=== PATIENT | female | born 1965 | race Caucasian/White ===

== ENCOUNTER → 2017-10-24 | Outpatient (CLI) | payer OTHER ==
[2017-10-24 16:45] VITALS: BP 108/73; PULSE 76; TEMP 97.7; BMI 40.1
--- NOTE | 2017-10-24 17:18 | P.HPOB ---
History of Present Illness H&P Date: 10/24/17 Chief Complaint: The patient is here for her routine gynecologic exam and mammogram. This is a 51-year-old G0 with an LMP of 2011. The patient has had some breast tenderness greater on the right side. Soreness is near the axilla. This started earlier in the month and is slightly tender when she pushes on this area. She denies feeling any breast masses. She also denies any nipple discharge. She is otherwise without complaints. She denies any postmenopausal bleeding. Review of Systems She has gained about 10 pounds over the last year. She denies cardiac or G.I. problems. Respiratory: she has noticed some respiratory congestion in the morning which improves with time or with a cough drop. Past Medical History Additional Past Medical History / Comment(s): MIGRAINE HEADACHE, irritable bowel syndrome. 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 History of Any Multi-Drug Resistant Organisms: None Reported Past Surgical History: Cholecystectomy, Orthopedic Surgery (Left knee), Tonsillectomy Additional Past Surgical History / Comment(s): ARTHROSCOPIC LEFT KNEE, colonoscopy 2001 and 2014. Past Anesthesia/Blood Transfusion Reactions: No Reported Reaction Past Psychological History: No Psychological Hx Reported Smoking Status: Never smoker Past Alcohol Use History: None Reported Past Drug Use History: None Reported Additional History: She is single and has never been sexually active. 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 - Past Family History Mother Family Medical History: CVA/TIA Sister(s) Family Medical History: Cancer (Thyroid) Additional Family Medical History / Comment(s): Sister has celiac disease Medications and Allergies Home Medications Medication Instructions Recorded Confirmed Type Amitriptyline HCl 25 mg PO HS 11/27/14 10/24/17 History Propranolol HCl 80 mg PO HS 11/27/14 10/24/17 History Allergies Allergy/AdvReac Type Severity Reaction Status Date / Time No Known Allergies Allergy Verified 10/24/17 16:42 Exam - Vital Signs Vital signs: Vital Signs Temp Pulse BP 10/24/17 16:42 97.7 F 76 108/73 Intake and Output 10/24/17 10/24/17 10/24/17 06:59 14:59 22:59 Other: Weight 102.965 kg Height 5'3", BMI 40.2. This is a well-developed well-nourished heavyset white female who is alert and oriented times 3 in no acute distress. HEENT: Within normal limits. NECK: Supple without mass or thyromegaly. CHEST AND LUNGS: Clear to auscultation. HEART: Regular rate and rhythm. BREASTS: Are without mass or discharge. The breasts are large and pendulous. There is mild right tenderness at the area of the tail of the breast as it goes into the axillary region. There are no palpable masses. There are no other areas of tenderness. AXILLARY EXAM: Negative for adenopathy. BACK: Negative for CVA tenderness. ABDOMEN: Soft, obese, nontender, without palpable masses. PELVIC EXAM: Normal external genitalia with minimal atrophy. Cervix and vagina appear normal with minimal atrophy. There is no unusual discharge. There is no evidence of prolapse. The uterus is midposition, nongravid size and nontender. There are no palpable adnexal masses or tenderness. Bimanual exam is somewhat limited secondary to her size. RECTAL EXAM: rectovaginal exam is negative for mass or tenderness and is negative for occult blood. EXTREMITIES: Nontender. IMPRESSION: 1. 51-year-old menopausal female with normal gynecologic exam. 2. Breast tenderness on the right in the area of the anterior axilla. Possible musculoskeletal strain or stretching of the breast supports secondary to large breasts. PLAN: 1. Pap smear was deferred since she had a normal one less than 2 years ago. 2. Self breast awareness was discussed. I have recommended that she limit caffeine and chocolate intake. I have also recommended that she tried to use well fitting bras with good support. 3. Screening mammogram will be done today. 4. Osteoporosis prevention was discussed. 5. She will return in one year.
--- NOTE | 2017-10-25 11:07 | MM ---
Reason for exam: screening (asymptomatic). Last mammogram was performed 1 year and 11 months ago. History: Patient is postmenopausal and is nulliparous. Took hormonal contraceptives for 9 years. Physical Findings: A clinical breast exam by your physician is recommended on an annual basis and results should be correlated with mammographic findings. MG Screening Mammo w CAD Bilateral CC and MLO view(s) were taken. Prior study comparison: November 17, 2015, bilateral MG screening mammo w CAD. May 20, 2014, bilateral MG screening mammo w CAD. There are scattered fibroglandular densities. There is no discrete abnormality. No significant changes when compared with prior studies. ASSESSMENT: Negative, BI-RAD 1 RECOMMENDATION: Routine screening mammogram of both breasts in 1 year.
== END | disposition home or self-care (01) ==
LOC: WWCWWP 15:57
PROVIDERS: ATTEND Obstetrics & Gynecology
DX: Z12.31 Encounter for screening mammogram for malignant neoplasm of breast (principal)
CPT/HCPCS: 77067

== ENCOUNTER → 2018-03-17 | Outpatient (CLI) | payer OTHER ==
[2018-03-17 10:15] LABS: HCT 44.9 % (34.0-46.0); HGB 14.9 gm/dL (11.4-16.0); MCH 30.7 pg (25.0-35.0); MCHC 33.2 g/dL (31.0-37.0); MCV 92.5 fL (80.0-100.0); Mean Platelet Volume 6.7; Platelet Count 275 k/uL (150-450); RBC 4.85 m/uL (3.80-5.40); RDW 12.5 % (11.5-15.5); WBC 6.5 k/uL (3.8-10.6)
[2018-03-17 10:44] LABS: ALT 34 U/L (9-52); AST 22 U/L (14-36); Albumin 3.9 g/dL (3.5-5.0); Alkaline Phosphatase 85 U/L (38-126); Anion Gap 6 mmol/L; Blood Urea Nitrogen 15 mg/dL (7-17); Calcium 9.4 mg/dL (8.4-10.2); Carbon Dioxide 26 mmol/L (22-30); Chloride 108 mmol/L (98-107); Cholesterol 171 mg/dL (<200); Glucose 96 mg/dL (74-99); HDL Cholesterol 43 mg/dL (40-60); LDL Cholesterol,Calculated 109 mg/dL (0-99); Potassium 4.4 mmol/L (3.5-5.1); Sodium 140 mmol/L (137-145); Total Bilirubin 0.7 mg/dL (0.2-1.3); Triglycerides 97 mg/dL (<150)
[2018-03-17 10:53] LABS: T4, Free (Free Thyroxine) 1.09 ng/dL (0.78-2.19)
== END ==
LOC: LABWHC1 09:28
PROVIDERS: ATTEND Internal Medicine
DX: Z00.00 Encounter for general adult medical examination without abnormal findings (principal); K21.0 Gastro-esophageal reflux disease with esophagitis; E66.1 Drug-induced obesity; E78.2 Mixed hyperlipidemia; M19.90 Unspecified osteoarthritis, unspecified site
CPT/HCPCS: 36415; 80053; 80061; 82272; 84439; 84443; 85027

== ENCOUNTER → 2018-06-22 | Outpatient (CLI) | payer OTHER ==
[2018-06-22 17:48] LABS: Appearance,Urine Clear (Clear); Bilirubin,Urine Negative (Negative); Blood,Urine Moderate (Negative); Color,Urine Yellow; Glucose,Urine (UA) Negative (Negative); Ketones,Urine Negative (Negative); Leukocyte Esterase,Urine Negative (Negative); Mucus,Urine Rare /hpf; Nitrite,Urine Negative (Negative); PH, Urine 5.5 (5.0-8.0); Protein,Urine Negative (Negative); RBC,Urine 10 /hpf (0-5); Specific Gravity,Urine 1.024 (1.001-1.035); Squamous Epithelial Cell,Urine <1 /hpf (0-4); Urobilinogen,Urine <2.0 mg/dL (<2.0); WBC,Urine 4 /hpf (0-5)
== END | disposition home or self-care (01) ==
LOC: LABWHC1 15:53
PROVIDERS: ATTEND Internal Medicine
DX: R35.0 Frequency of micturition (principal)
CPT/HCPCS: 81001

== ENCOUNTER → 2019-02-26 | Outpatient (CLI) | payer OTHER ==
[2019-02-26 16:09] VITALS: BP 107/74; PULSE 78; RESP 18; TEMP 97.9; BMI 42.7
--- NOTE | 2019-02-26 17:01 | P.HPOB ---
History of Present Illness H&P Date: 02/26/19 Chief Complaint: The patient is here for her routine gynecologic exam and ma mmogram. This is a 53-year-old G0 with an LMP of 2012. The patient is without gynecologic complaints and denies any postmenopausal bleeding. Review of Systems The patient's weight has been stable over the last year. She denies respiratory, cardiac, or G.I. problems. Past Medical History Additional Past Medical History / Comment(s): MIGRAINE HEADACHE, irritable bowel syndrome. 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 History of Any Multi-Drug Resistant Organisms: None Reported Past Surgical History: Cholecystectomy, Orthopedic Surgery, Tonsillectomy Additional Past Surgical History / Comment(s): ARTHROSCOPIC LEFT KNEE, colonoscopy 2014(2nd, next after 10yrs). Past Anesthesia/Blood Transfusion Reactions: No Reported Reaction Past Psychological History: No Psychological Hx Reported Smoking Status: Never smoker Past Alcohol Use History: None Reported Past Drug Use History: None Reported Additional History: She is single and has never been sexually active. 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 - Past Family History Sister(s) Family Medical History: Cancer Additional Family Medical History / Comment(s): Sister has celiac disease Mother Family Medical History: COPD, CVA/TIA Brother(s) Family Medical History: COPD Medications and Allergies Home Medications Medication Instructions Recorded Confirmed Type Amitriptyline HCl 25 mg PO HS 11/27/14 02/26/19 History Propranolol HCl 80 mg PO HS 11/27/14 02/26/19 History Allergies Allergy/AdvReac Type Severity Reaction Status Date / Time No Known Allergies Allergy Verified 02/26/19 16:09 Exam Vital Signs Temp Pulse Resp BP Pulse Ox 02/26/19 16:02 97.9 F 78 18 107/74 97 Intake and Output 02/26/19 02/26/19 02/26/19 06:59 14:59 22:59 Other: Weight 102.512 kg Height 5'1", weight 226 pounds, BMI 42.7. This is a well-developed well-nourished heavyset white female who is alert and oriented times 3 in no acute distress. HEENT: Within normal limits. NECK: Supple without mass or thyromegaly. CHEST AND LUNGS: Clear to auscultation. HEART: Regular rate and rhythm. BREASTS: Are without mass or discharge. AXILLARY EXAM: Negative for adenopathy. BACK: Negative for CVA tenderness. ABDOMEN: Soft, obese, nontender, without palpable masses. PELVIC EXAM: Normal external genitalia with mild atrophy. Cervix and vagina appear normal with mild atrophy. The service is somewhat stenotic secondary to atrophy. There is no unusual discharge. There is no evidence of prolapse. The uterus is midposition, nongravid size and nontender. There are no palpable adnexal masses or tenderness. Bimanual examination is somewhat limited secondary to her size. RECTAL EXAM: rectovaginal exam is negative for mass or tenderness and is negative for occult blood. EXTREMITIES: Nontender. IMPRESSION: 1. 53-year-old menopausal female with normal gynecologic exam. PLAN: 1. Pap smear was performed. 2. Self breast awareness was discussed with the patient. 3. Screening mammogram will be done today. 4. Osteoporosis prevention was discussed. I have stressed the importance of adequate calcium, vitamin D and regular exercise. Recommended amounts of calcium and vitamin D were also discussed. 5. She was advised to return in one year for her annual well woman exam.
--- NOTE | 2019-02-28 09:54 | MM ---
Reason for exam: screening (asymptomatic). Last mammogram was performed 1 year and 4 months ago. History: Patient is postmenopausal and is nulliparous. Took hormonal contraceptives for 9 years. Physical Findings: A clinical breast exam by your physician is recommended on an annual basis and results should be correlated with mammographic findings. MG 3D Screening Mammo W/Cad Bilateral CC and MLO view(s) were taken. Prior study comparison: October 24, 2017, bilateral MG screening mammo w CAD. November 17, 2015, bilateral MG screening mammo w CAD. There are scattered fibroglandular densities. No significant changes when compared with prior studies. ASSESSMENT: Benign, BI-RAD 2 RECOMMENDATION: Routine screening mammogram of both breasts in 1 year.
== END | disposition home or self-care (01) ==
LOC: WWCWWP 15:57
PROVIDERS: ATTEND Obstetrics & Gynecology
DX: Z12.31 Encounter for screening mammogram for malignant neoplasm of breast (principal)
CPT/HCPCS: 77063; 77067

== ENCOUNTER → 2020-05-26 | Outpatient (CLI) | payer OTHER ==
[2020-05-26 15:48] VITALS: BP 101/67; PULSE 75; RESP 18; TEMP 97.9
--- NOTE | 2020-05-26 16:36 | P.HPOB ---
History of Present Illness H&P Date: 05/26/20 Chief Complaint: The patient is here for her routine gynecologic exam and ma mmogram. This is a 54-year-old G0 with an LMP of 2012. The patient is without gynecologic complaints. Review of Systems The patient has lost 10 pounds over the last year. She denies respiratory, cardiac, or G.I. problems. Past Medical History Additional Past Medical History / Comment(s): MIGRAINE HEADACHE, irritable bowel syndrome. Right knee problems. 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 History of Any Multi-Drug Resistant Organisms: None Reported Past Surgical History: Cholecystectomy, Orthopedic Surgery, Tonsillectomy Additional Past Surgical History / Comment(s): ARTHROSCOPIC LEFT KNEE, colonoscopy 2014(2nd, next after 10yrs). Past Anesthesia/Blood Transfusion Reactions: No Reported Reaction Past Psychological History: No Psychological Hx Reported Smoking Status: Never smoker Past Alcohol Use History: None Reported Past Drug Use History: None Reported Additional History: The patient is single and has never been sexually active. 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 - Past Family History Sister(s) Family Medical History: Cancer Additional Family Medical History / Comment(s): Sister has celiac disease Brother(s) Family Medical History: COPD Mother Family Medical History: COPD, CVA/TIA Medications and Allergies Home Medications Medication Instructions Recorded Confirmed Type Amitriptyline HCl 25 mg PO HS 11/27/14 05/26/20 History Propranolol HCl 80 mg PO HS 11/27/14 05/26/20 History Cholecalciferol [Vitamin D3 (25 2,000 unit PO DAILY 05/26/20 05/26/20 History Mcg = 1000 Iu)] Allergies Allergy/AdvReac Type Severity Reaction Status Date / Time No Known Allergies Allergy Verified 05/26/20 15:42 Exam Vital Signs Temp Pulse Resp BP Pulse Ox 05/26/20 15:43 97.9 F 75 18 101/67 97 Intake and Output 05/26/20 05/26/20 05/26/20 06:59 14:59 22:59 Other: Weight 97.976 kg Height 5 foot 1-1/2 inches, weight 216 pounds, BMI 40.2. This is a well-developed well-nourished heavyset white female who is alert and oriented times 3 in no acute distress. HEENT: Within normal limits. NECK: Supple without mass or thyromegaly. CHEST AND LUNGS: Clear to auscultation. HEART: Regular rate and rhythm. BREASTS: Are without mass or discharge. AXILLARY EXAM: Negative for adenopathy. BACK: Negative for CVA tenderness. ABDOMEN: Soft, obese, nontender, without palpable masses. PELVIC EXAM: Normal external genitalia with mild atrophy. Cervix and vagina appear normal mild atrophy. There is no unusual discharge. There is no evidence of prolapse. The uterus is midposition, nongravid size and nontender. There are no palpable adnexal masses or tenderness. RECTAL EXAM: Rectovaginal exam is negative for mass or tenderness and is negative for occult blood. EXTREMITIES: Nontender. IMPRESSION: 1. 54-year-old menopausal virginal female with normal gynecologic exam. PLAN: 1. Pap smear was deferred since she had a normal one on 02/26/2019. 2. Self breast awareness was discussed with the patient. 3. Screening mammogram will be done today. 4. Osteoporosis prevention was discussed. I have stressed the importance of adequate calcium, vitamin D and regular exercise. Recommended amounts of calcium and vitamin D were also discussed. 5. She was advised to return in one year for her annual well woman exam.
--- NOTE | 2020-05-27 11:47 | MM ---
Reason for exam: screening (asymptomatic). Last mammogram was performed 1 year and 3 months ago. History: Patient is postmenopausal and is nulliparous. Took hormonal contraceptives for 9 years. Physical Findings: A clinical breast exam by your physician is recommended on an annual basis and results should be correlated with mammographic findings. MG 3D Screening Mammo W/Cad Bilateral CC and MLO view(s) were taken. Prior study comparison: February 26, 2019, bilateral MG 3d screening mammo w/cad. October 24, 2017, bilateral MG screening mammo w CAD. The breast tissue is almost entirely fat. No significant changes when compared with prior studies. ASSESSMENT: Negative, BI-RAD 1 RECOMMENDATION: Routine screening mammogram of both breasts in 1 year.
== END | disposition home or self-care (01) ==
LOC: WWCWWP 15:21
PROVIDERS: ATTEND Obstetrics & Gynecology
DX: Z12.31 Encounter for screening mammogram for malignant neoplasm of breast (principal)
CPT/HCPCS: 77063; 77067

== ENCOUNTER → 2021-07-28 | Outpatient (CLI) | payer OTHER ==
--- NOTE | 2021-07-29 09:25 | MM ---
Reason for exam: additional evaluation requested from abnormal screening. Last mammogram was performed less than 1 month ago. History: Patient is postmenopausal and is nulliparous. Took hormonal contraceptives for 9 years. Physical Findings: Nurse did not find any significant physical abnormalities on exam. MG 3D Work Up W/Cad RT Spot compression CC, spot compression MLO, and LM view(s) were taken of the right breast. Prior study comparison: July 20, 2021, bilateral MG 3d screening mammo w/cad. May 26, 2020, bilateral MG 3d screening mammo w/cad. The breast tissue is heterogeneously dense. This may lower the sensitivity of mammography. There is no discrete abnormality including area of concern right upper outer quadrant, anterior position. No significant new findings when compared with previous films. These results were verbally communicated with the patient and result sheet given to the patient on 07/28/21. ASSESSMENT: Probably benign, BI-RAD 3 RECOMMENDATION: Follow-up diagnostic mammogram of the right breast in 6 months.
== END | disposition home or self-care (01) ==
LOC: RADMAMWWP 14:53
PROVIDERS: ATTEND Obstetrics & Gynecology
DX: R92.8 Other abnormal and inconclusive findings on diagnostic imaging of breast (principal); Z78.0 Asymptomatic menopausal state
CPT/HCPCS: 77061; 77065

== ENCOUNTER → 2022-03-08 | Outpatient (CLI) | payer OTHER ==
--- NOTE | 2022-03-08 14:56 | MM ---
Reason for Exam: Follow-up at short interval from prior study. Last screening mammogram was performed 8 month(s) ago. Patient History: Menarche at age 11. Patient has no children. Postmenopausal. Hormonal Contraceptives for 9 years until age 40. Risk Values: Alyssa 5 year model risk: 1.4%. NCI Lifetime model risk: 8.7%. Prior Study Comparison: 05/26/2020 Bilateral Screening Mammogram, [facility]. 07/20/2021 Bilateral Screening Mammogram, [facility]. 07/28/2021 Right Diagnostic Mammogram, [facility]. Tissue Density: Right: There are scattered fibroglandular densities. Findings: Analyzed By CAD. Asymmetric prominent tissue anteriorly in the right breast is unchanged from prior mammograms. Occasional scattered benign-appearing round calcifications of the right breast demonstrated. No new mass or distortion in the right breast. Overall Assessment: Benign, BI-RAD 2 Management: Screening Mammogram of both breasts in 5 months. A clinical breast exam by your physician is recommended on an annual basis and results should be correlated with mammographic findings. This exam should not preclude additional follow-up of suspicious palpable abnormalities. Results were given to the patient verbally at the time of exam. Electronically signed and approved by: Amilcar Banks M.D.
== END | disposition home or self-care (01) ==
LOC: RADMAMWWP 14:27
PROVIDERS: ATTEND Obstetrics & Gynecology
DX: R92.8 Other abnormal and inconclusive findings on diagnostic imaging of breast (principal); Z78.0 Asymptomatic menopausal state
CPT/HCPCS: 77061; 77065

== ENCOUNTER → 2023-05-23 | Outpatient (CLI) | payer OTHER ==
[2023-05-23 16:33] VITALS: BP 110/71; PULSE 77; RESP 17; TEMP 97.9
--- NOTE | 2023-05-23 16:45 | P.HPOB ---
History of Present Illness H&P Date: 05/23/23 Chief Complaint: The patient is here for her routine gynecologic exam and ma mmogram. This is a 57-year-old G0 with an LMP of 2012. The patient is without gynecologic complaints and denies any postmenopausal bleeding. Review of Systems The patient has lost 9 pounds over the last year. She denies respiratory, cardiac, or G.I. problems. Past Medical History Additional Past Medical History / Comment(s): MIGRAINE HEADACHE, irritable bowel syndrome. Right knee problems. 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 History of Any Multi-Drug Resistant Organisms: None Reported Past Surgical History: Cholecystectomy, Orthopedic Surgery, Tonsillectomy Additional Past Surgical History / Comment(s): ARTHROSCOPIC LEFT KNEE, colonoscopy 2014(2nd, next after 10yrs). Past Anesthesia/Blood Transfusion Reactions: No Reported Reaction Past Psychological History: No Psychological Hx Reported Smoking Status: Never smoker Past Alcohol Use History: None Reported Past Drug Use History: None Reported Additional History: The patient is single and has never been sexually active. 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 - Past Family History Sister(s) Family Medical History: Cancer Additional Family Medical History / Comment(s): Sister has celiac disease Brother(s) Family Medical History: COPD Mother Family Medical History: COPD, CVA/TIA Medications and Allergies Home Medications Medication Instructions Recorded Confirmed Type Amitriptyline HCl 25 mg PO HS 11/27/14 05/23/23 History Propranolol HCl 80 mg PO HS 11/27/14 05/23/23 History Flunisolide Nasal [place] [Nasalide] 1 spray NASAL DAILY 05/23/23 05/23/23 History hydroCHLOROthiazide 25 mg PO DAILY 05/23/23 05/23/23 History Allergies Allergy/AdvReac Type Severity Reaction Status Date / Time No Known Allergies Allergy Verified 05/23/23 16:06 Exam Vital Signs Temp Pulse Resp BP Pulse Ox 05/23/23 16:07 97.9 F 77 17 110/71 98 Intake and Output 05/23/23 05/23/23 05/23/23 06:59 14:59 22:59 Other: Weight 96.162 kg Height 5 foot 1 inch, weight 212 pounds, BMI 40.1. This is a well-developed well-nourished white female who is alert and oriented times 3 in no acute distress. HEENT: Within normal limits. NECK: Supple without mass or thyromegaly. CHEST AND LUNGS: Clear to auscultation. HEART: Regular rate and rhythm. BREASTS: Are without mass or discharge. AXILLARY EXAM: Negative for adenopathy. BACK: Negative for CVA tenderness. ABDOMEN: Soft, obese, nontender, without palpable masses. PELVIC EXAM: Normal external genitalia with mild atrophy. Cervix and vagina appear normal mild atrophy. There is no unusual discharge. There is no evidence of prolapse. The uterus is midposition, nongravid size and nontender. There are no palpable adnexal masses or tenderness. RECTAL EXAM: Rectovaginal exam is negative for mass or tenderness and is negative for occult blood. There is moderate hard stool in the rectum. EXTREMITIES: Nontender. IMPRESSION: 1. 57-year-old virginal menopausal female with normal gynecologic exam. PLAN: 1. Pap smear was deferred since she had a negative Pap smear cotest on 07/20/2021. 2. Self breast awareness was discussed with the patient. We have also discussed symptoms associated with inflammatory breast cancer. 3. Screening mammogram will be done today. 4. Osteoporosis prevention was discussed. I have stressed the importance of adequate calcium, vitamin D and regular exercise. Recommended amounts of calcium and vitamin D were also discussed. 5. She was advised to return in one year for her annual well woman exam.
== END ==
LOC: WWCWWP 16:02
PROVIDERS: ATTEND Obstetrics & Gynecology
DX: Z12.31 Encounter for screening mammogram for malignant neoplasm of breast (principal); G43.909 Migraine, unspecified, not intractable, without status migrainosus; K58.9 Irritable bowel syndrome, unspecified; Z90.49 Acquired absence of other specified parts of digestive tract; Z78.0 Asymptomatic menopausal state
CPT/HCPCS: 77063; 77067

== ENCOUNTER → 2023-06-08 | Outpatient (CLI) | payer OTHER ==
--- NOTE | 2023-06-08 10:43 | MM ---
Reason for Exam: Additional evaluation requested from abnormal screening. Last screening mammogram was performed less than 1 month ago. Patient History: Menarche at age 11. Patient has no children. Postmenopausal. Hormonal Contraceptives for 9 years until age 40. Risk Values: Alyssa 5 year model risk: 1.5%. NCI Lifetime model risk: 8.5%. Prior Study Comparison: 02/26/2019 Bilateral Screening Mammogram, [facility]. 05/26/2020 Bilateral Screening Mammogram, [facility]. 07/20/2021 Bilateral Screening Mammogram, [facility]. 07/28/2021 Right Diagnostic Mammogram, [facility]. 03/08/2022 Right MG 3D diag mammo w/cad RT, [facility]. 05/23/2023 Bilateral MG 3D screening mammo w/cad, [facility]. Tissue Density: Right: There are scattered fibroglandular densities. Findings: Analyzed By CAD. Pattern appears stable. On compression this anterior area appears to disperse normally. On medial view no suspicious nodularity. Some summation density may be present on the lateral views. Short-term follow-up can be performed. Overall Assessment: Probably benign, BI-RAD 3 Management: Screening Mammogram of the right breast in 6 months. A negative mammogram report should not preclude additional follow up of suspicious palpable abnormalities. Patient should continue monthly self breast exam. A clinical breast exam by your physician is recommended on an annual basis and results should be correlated with mammographic findings. Electronically signed and approved by: Yoandy Russo D.O. Radiologis
== END | disposition home or self-care (01) ==
LOC: RADMAMWWP 10:02
PROVIDERS: ATTEND Obstetrics & Gynecology
DX: R92.321 Mammographic fibroglandular density, right breast (principal); Z78.0 Asymptomatic menopausal state
CPT/HCPCS: 77061; 77065

== ENCOUNTER → 2024-06-04 | Outpatient (CLI) | payer OTHER ==
[2024-06-04 15:15] LABS: ALT 23 U/L (8-44); AST 19 U/L (13-35); Albumin 4.2 g/dL (3.8-4.9); Albumin/Globulin Ratio 1.56 Ratio (1.60-3.17); Alkaline Phosphatase 94 U/L (41-126); BUN/Creat Ratio 22.43 Ratio (12.00-20.00); Blood Urea Nitrogen 15.7 mg/dL (9.0-27.0); Calcium 9.2 mg/dL (8.7-10.3); Carbon Dioxide 25.4 mmol/L (21.6-31.8); Chloride 107 mmol/L (96-109); Chol/HDL Ratio 4.08 Ratio; Globulin 2.7 g/dL (1.6-3.3); Glucose 101 mg/dL (70-110); LDL Cholesterol,Calculated 125.6 mg/dL (0.0-131.0); Potassium 4.6 mmol/L (3.5-5.5); Sodium 141 mmol/L (135-145); Total Bilirubin 0.3 mg/dL (0.3-1.2); Total Protein 6.9 g/dL (6.2-8.2)
[2024-06-04 15:35] LABS: Basophils # (A) 0.07 X 10*3/uL (0.00-0.10); Basophils % (A) 0.9 %; Eosinophils # (A) 0.31 X 10*3/uL (0.04-0.35); Eosinophils % (A) 4.2 %; HCT 46.4 % (37.2-46.3); HGB 15.1 g/dL (12.0-15.0); Lymphocytes # (A) 2.17 X 10*3/uL (0.90-5.00); Lymphocytes % (A) 29.2 %; MCH 29.8 pg (27.0-32.0); MCHC 32.5 g/dL (32.0-37.0); MCV 91.7 FL (80.0-97.0); Mean Platelet Volume 9.6 FL (9.5-12.2); Monocytes # (A) 0.45 X 10*3/uL (0.20-1.00); Monocytes % (A) 6.1 %; NRBC Per 100 WBC 0 X 10*3/uL (0.00-0.01); Neutrophils # (A) 4.41 X 10*3/uL (1.80-7.70); Neutrophils % (A) 59.3 %; Platelet Count 251 X 10*3/uL (140-440); RBC 5.06 X 10*6/uL (4.10-5.20); RDW 12.7 % (11.5-14.5); WBC 7.43 X 10*3/uL (4.50-10.00)
== END | disposition home or self-care (01) ==
LOC: LABWHC1 09:03
PROVIDERS: ATTEND Family Medicine
DX: Z00.00 Encounter for general adult medical examination without abnormal findings (principal)
CPT/HCPCS: 36415; 80053; 80061; 85025

== ENCOUNTER → 2024-06-04 | Outpatient (CLI) | payer OTHER ==
[2024-06-04 08:34] VITALS: BP 105/66; PULSE 72; RESP 17; TEMP 97.9
--- NOTE | 2024-06-04 08:44 | P.HPOB ---
History of Present Illness H&P Date: 06/04/24 Chief Complaint: The patient is here for her routine gynecologic exam and ma mmogram. This is a 58-year-old G0 with an LMP of 2011. The patient is without gynecologic complaints and denies any postmenopausal bleeding. Review of Systems The patient has gained 10 pounds over the last year. She recently has lost 5 pounds and is actively trying to lose weight with diet and exercise. She denies respiratory, cardiac, or G.I. problems. Past Medical History Additional Past Medical History / Comment(s): MIGRAINE HEADACHE, irritable bowel syndrome. Right knee and back problems. 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 History of Any Multi-Drug Resistant Organisms: None Reported Past Surgical History: Cholecystectomy, Orthopedic Surgery, Tonsillectomy Additional Past Surgical History / Comment(s): ARTHROSCOPIC LEFT KNEE, colonoscopy 2014(2nd, next after 10yrs). Past Anesthesia/Blood Transfusion Reactions: No Reported Reaction Past Psychological History: No Psychological Hx Reported Smoking Status: Never smoker Past Alcohol Use History: None Reported Past Drug Use History: None Reported Additional History: The patient is single and has never been sexually active. 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 - Past Family History Sister(s) Family Medical History: Cancer Additional Family Medical History / Comment(s): Sister has celiac disease Brother(s) Family Medical History: COPD Mother Family Medical History: COPD, CVA/TIA Medications and Allergies Home Medications Medication Instructions Recorded Confirmed Type Amitriptyline HCl 25 mg PO HS 11/27/14 06/04/24 History Propranolol HCl 80 mg PO HS 11/27/14 06/04/24 History Flunisolide Nasal [place] [Nasalide] 1 spray NASAL DAILY PRN 05/23/23 06/04/24 History hydroCHLOROthiazide 25 mg PO DIRECTED PRN 05/23/23 06/04/24 History Allergies Allergy/AdvReac Type Severity Reaction Status Date / Time No Known Allergies Allergy Verified 05/23/23 16:06 Exam Vital Signs Temp Pulse Resp BP Pulse Ox 06/04/24 08:23 97.9 F 72 17 105/66 97 Intake and Output 06/03/24 06/04/24 06/04/24 22:59 06:59 14:59 Other: Weight 100.698 kg Height 5 feet 2 inches, weight 222 pounds, BMI 40.6. This is a well-developed well-nourished heavyset white female who is alert and oriented times 3 in no acute distress. HEENT: Within normal limits. NECK: Supple without mass or thyromegaly. CHEST AND LUNGS: Clear to auscultation. HEART: Regular rate and rhythm. BREASTS: Are without mass or discharge. AXILLARY EXAM: Negative for adenopathy. BACK: Negative for CVA tenderness. ABDOMEN: Soft, obese, nontender, without palpable masses. PELVIC EXAM: Normal external genitalia with mild atrophy. Cervix and vagina appear normal with mild atrophy. There is no unusual discharge. There is no evidence of prolapse. The uterus is midposition, nongravid size and nontender. There are no palpable adnexal masses or tenderness. Bimanual examination is somewhat limited secondary to her size. RECTAL EXAM: Rectovaginal exam is negative for mass or tenderness and is negative for occult blood. EXTREMITIES: Nontender. IMPRESSION: 1. 58-year-old virginal menopausal female with normal gynecologic exam. PLAN: 1. Pap smear was deferred since she had a negative Pap smear cotest on 07/20/2021. 2. Self breast awareness was discussed with the patient. We have also discussed symptoms associated with inflammatory breast cancer. 3. Bilateral diagnostic mammogram will be done today. She did not have the 6 months of right diagnostic mammogram done as recommended. Her bilateral mammogram with workup about 1 year ago did recommend that 6-month follow-up. 4. Osteoporosis prevention was discussed. I have stressed the importance of adequate calcium, vitamin D and regular exercise. Recommended amounts of calcium and vitamin D were also discussed. 5. Weight control was discussed with the patient. Have stressed the importance of good nutrition, regular meals, adequate fiber, and regular exercise. She is currently doing things to try to accomplish this. 6. She was advised to return in one year for her annual well woman exam.
== END ==
LOC: WWCWWP 07:56
PROVIDERS: ATTEND Obstetrics & Gynecology
DX: Z78.0 Asymptomatic menopausal state (principal)
CPT/HCPCS: 77062; 77066